=== PATIENT | male | born 1955 | race American Indian/Alaskan Native ===

== ENCOUNTER 2016-11-03 13:07 | Emergency (ER) | payer OTHER ==
[2016-11-03 14:14] LABS: Basophils % (Auto) 0.3 % (0.0-1.8); Hematocrit 43.5 % (35.5-45.6); Hemoglobin 14.8 gm/dl (11.8-15.2); Mean Corpuscular HGB Conc 34 % (32-34); Mean Corpuscular Hemoglobin 32 pg (28-32); Mean Corpuscular Volume 95 fl (84-94); Platelet Count 229 K/mm3 (140-440); Red Blood Count 4.57 M/mm3 (3.65-5.03); Red Cell Distribution Width 13.2 % (13.2-15.2); White Blood Count 8.1 K/mm3 (4.5-11.0)
[2016-11-03 14:18] LABS: Anion Gap 13 mmol/L; BUN/Creatinine Ratio 15.71; Blood Urea Nitrogen 11 mg/dL (9-20); Carbon Dioxide 27 mmol/L (22-30); Chloride 103.9 mmol/L (98-107); Glucose 94 mg/dL (75-100); Potassium 4.1 mmol/L (3.6-5.0); Sodium 140 mmol/L (137-145)
[2016-11-03 14:46] LABS: Bilirubin,Urine NEG (Negative); Blood,Urine NEG (Negative); Ketones,Urine NEG (Negative); Leukocyte Esterase,Urine NEG (Negative); Mucus,Urine FEW /HPF; Nitrite,Urine NEG (Negative); Protein,Urine <15 mg/dL mg/dL (Negative); Urobilinogen,Urine < 2.0 mg/dL (<2.0)
[2016-11-03] MEDS ORDERED: ZOFRAN IV ONE (16:11)
[2016-11-03] MEDS ORDERED: TORADOL IV ONE (16:11)
[2016-11-03] MEDS ORDERED: NACL 0.9% 1000 ML 1,000 ML IV ONE (16:11)
[2016-11-03] MEDS ORDERED: DILAUDID IV ONE (16:11)
--- NOTE | 2016-11-03 16:26 | Emergency Department Report ---
ED Abdominal Pain HPI - General Chief Complaint: Abdominal Pain Stated Complaint: LOWER BACK/GROIN PAIN Time Seen by Provider: 11/03/16 16:06 Source: patient Mode of arrival: Ambulatory Limitations: No Limitations - History of Present Illness MD Complaint: abdominal pain, flank pain -: Sudden Location: LLQ, L flank Radiation: none Severity: moderate Severity scale (0 -10): 3 Quality: dull Consistency: intermittent Improves With: nothing Worsens With: nothing Associated Symptoms: nausea. denies: vomiting, diarrhea, fever, chills, constipation, dysuria, hematemesis, melena, hematuria, anorexia - Related Data Previous Rx's Medication Instructions Recorded Last Taken Type Diclofenac Potassium 50 mg PO BID #20 tablet 11/03/16 Unknown Rx Allergies Allergy/AdvReac Type Severity Reaction Status Date / Time No Known Allergies Allergy Unverified 11/03/16 13:31 ED Review of Systems ROS: Stated complaint: LOWER BACK/GROIN PAIN Other details as noted in HPI Comment: All other systems reviewed and negative ED Past Medical Hx - Past Medical History Previous Medical History?: No - Surgical History Past Surgical History?: No - Social History Smoking Status: Current Every Day Smoker Substance Use Type: Alcohol - Medications Home Medications: Home Medications Medication Instructions Recorded Confirmed Last Taken Type Diclofenac Potassium 50 mg PO BID #20 tablet 11/03/16 Unknown Rx ED Physical Exam - General General appearance: alert, in no apparent distress - Head Head exam: Present: atraumatic, normocephalic - Eye Eye exam: Present: normal appearance, PERRL, EOMI - ENT ENT exam: Present: normal exam, normal orophraynx, mucous membranes moist - Neck Neck exam: Present: normal inspection - Respiratory Respiratory exam: Present: normal lung sounds bilaterally. Absent: respiratory distress, wheezes, rales, rhonchi - Cardiovascular Cardiovascular Exam: Present: regular rate, normal rhythm. Absent: systolic murmur, diastolic murmur, rubs, gallop - GI/Abdominal GI/Abdominal exam: Present: soft, normal bowel sounds. Absent: distended, tenderness, guarding, rebound - Rectal Rectal exam: Present: deferred - Extremities Exam Extremities exam: Present: normal inspection - Back Exam Back exam: Present: normal inspection, CVA tenderness (L) - Neurological Exam Neurological exam: Present: alert, oriented X3 - Psychiatric Psychiatric exam: Present: normal affect, normal mood - Skin Skin exam: Present: warm, dry, intact, normal color. Absent: rash ED Course Vital Signs 11/03/16 11/03/16 13:25 16:35 Temperature 98.9 F Pulse Rate 63 Respiratory 20 18 Rate Blood Pressure 172/90 O2 Sat by Pulse 99 Oximetry ED Medical Decision Making - Lab Data Result diagrams: 11/03/16 13:45 11/03/16 13:45 - Medical Decision Making patient doing well after lfuids and meds, ct abd and pelvis with non obstructing kidney stones, will dc and referral with urology. Critical care attestation.: If time is entered above; I have spent that time in minutes in the direct care of this critically ill patient, excluding procedure time. ED Disposition Clinical Impression: Kidney calculi Disposition: DC-01 TO HOME OR SELFCARE Is pt being admited?: No Does the pt Need Aspirin: No Condition: Good Instructions: Renal Colic (ED) Prescriptions: Diclofenac Potassium 50 mg PO BID #20 tablet Referrals: PRIMARY CARE, [Primary Care Provider] - 3-5 Days Time of Disposition: 17:54
--- NOTE | 2016-11-03 17:06 | Cat Scan Report ---
FINAL REPORT PROCEDURE: CT abdomen and pelvis without contrast. TECHNIQUE: Computerized axial tomography of the abdomen and pelvis was performed without intravenous contrast. This study is performed without intravascular contrast material and its sensitivity for abdominal and pelvic pathology, including neoplasms, inflammation, abscess, free fluid, thrombosis, arterial dissection and infarction, is reduced compared with a contrast enhanced study. HISTORY: Abdominal pain. COMPARISON: No prior studies are available for comparison. FINDINGS: There is a calcified granuloma and a couple small cysts in the right lower lobe. There are no pleural effusions. The heart size is normal. The liver, spleen and pancreas are grossly normal. There are 2 small foci of diminished attenuation within the right lobe of the liver. These probably represent small cysts. The gallbladder is present. The adrenal glands are not enlarged. Both kidneys appear normal in size and configuration. There are 2 large nonobstructing calculi in the lower pole of the right kidney. These are too large to pass spontaneously and referral to a urologist is suggested. The largest calculus measures 8.4 millimeters x 6.7 millimeters in cross-section. There appears to be a double renal collecting system on the right with a single ureter. The abdominal aorta has a normal caliber. There is no retroperitoneal adenopathy. The unopacified gastrointestinal tract is unremarkable. A normal appendix is visible. There is a very tiny focus of fat with a tiny calcification that appear to be within the dome of the bladder wall. This is seen on images 138 and 139 of series 3. This finding is of doubtful clinical significance, but uncertain etiology. The seminal vesicles are unremarkable. The prostate is enlarged. The regional skeleton appears intact. IMPRESSION: Probable 2 small hepatic cysts. Large nonobstructing calculi in the lower pole of the right kidney. Referral to urologist recommended. Enlargement of the prostate.
[2016-11-03 19:39] VITALS: BP 170/83
== END 2016-11-03 18:15 | disposition home or self-care (01) ==
LOC: ED 13:07
DX: N20.0 Calculus of kidney (principal); F17.200 Nicotine dependence, unspecified, uncomplicated
CPT/HCPCS: 36415; 74176; 80048; 81001; 85025; 96361; 96374; 96375; 99284; J1170; J1885; J2405; J7030

== ENCOUNTER 2017-02-05 08:34 | Emergency (ER) | payer OTHER ==
--- NOTE | 2017-02-05 09:55 | XRay Report ---
LEFT SHOULDER, 3 views: History: Left shoulder pain. Normal bone mineralization. No fracture, dislocation or ligamentous injury. No significant degenerative changes. Subtle calcifications overlie the expected course of the distal infraspinatus tendon consistent with chronic calcific tendinitis. The remaining soft tissues are within normal limits. IMPRESSION: Calcific tendinitis of the infraspinatus tendon. See above. No acute process.
--- NOTE | 2017-02-05 10:47 | Emergency Department Report ---
ED General Adult HPI - General Chief complaint: Shoulder Injury Stated complaint: LT SHOULDER PX Time Seen by Provider: 02/05/17 10:11 Source: patient, EMS Mode of arrival: Stretcher Limitations: No Limitations - History of Present Illness Initial comments: Patient is a 61-year-old malein past medical history who presents with left shoulder pain. Patient states left shoulder pain as been going on for last couple days. He states it is an achy type of pain at slow exam is shoulder and he has numbness that radiates down to his left arm. Patient denies having any chest pain patient's symptoms occurred when he was moving his shoulder. Patient states the pain is worse at the top of the shoulder moving his shoulder makes it worse and nothing makes it better. He states as a constant type of achy pain. He states the pains at 10 out 10. Patient denies any nausea or vomiting. - Related Data Previous Rx's Medication Instructions Recorded Last Taken Type Diclofenac Potassium 50 mg PO BID #20 tablet 11/03/16 Unknown Rx Acetaminophen [Non-Aspirin Pain 1,000 mg PO Q6HR PRN #30 tablet 02/05/17 Unknown Rx Relief] Cyclobenzaprine HCl [Flexeril 5 MG 5 mg PO TID PRN #30 tab 02/05/17 Unknown Rx TAB] HYDROcodone/APAP 7.5-325 [[place] 1 each PO Q8HR PRN #15 tablet 02/05/17 Unknown Rx 7.5/325] Naproxen [Naproxen TAB] 250 mg PO BID #20 tablet 02/05/17 Unknown Rx Allergies Allergy/AdvReac Type Severity Reaction Status Date / Time No Known Allergies Allergy Unverified 11/03/16 13:31 ED Review of Systems ROS: Stated complaint: LT SHOULDER PX Other details as noted in HPI Constitutional: denies: chills, fever Eyes: denies: eye pain, eye discharge, vision change ENT: denies: ear pain, throat pain Respiratory: denies: cough, shortness of breath, wheezing Cardiovascular: denies: chest pain, palpitations Endocrine: no symptoms reported Gastrointestinal: denies: abdominal pain, nausea, diarrhea Genitourinary: denies: urgency, dysuria Musculoskeletal: as per HPI, other (shoulder pain). denies: back pain, joint swelling, arthralgia Skin: denies: rash, lesions Neurological: denies: headache, weakness, paresthesias Psychiatric: denies: anxiety, depression Hematological/Lymphatic: denies: easy bleeding, easy bruising ED Past Medical Hx - Past Medical History Previous Medical History?: No - Surgical History Past Surgical History?: No - Social History Smoking Status: Current Every Day Smoker Substance Use Type: Alcohol - Medications Home Medications: Home Medications Medication Instructions Recorded Confirmed Last Taken Type Diclofenac Potassium 50 mg PO BID #20 tablet 11/03/16 Unknown Rx Acetaminophen [Non-Aspirin Pain 1,000 mg PO Q6HR PRN #30 tablet 02/05/17 Unknown Rx Relief] Cyclobenzaprine HCl [Flexeril 5 MG 5 mg PO TID PRN #30 tab 02/05/17 Unknown Rx TAB] HYDROcodone/APAP 7.5-325 [[place] 1 each PO Q8HR PRN #15 tablet 02/05/17 Unknown Rx 7.5/325] Naproxen [Naproxen TAB] 250 mg PO BID #20 tablet 02/05/17 Unknown Rx ED Physical Exam - General Limitations: No Limitations General appearance: alert, in no apparent distress - Head Head exam: Present: atraumatic, normocephalic - Eye Eye exam: Present: normal appearance - ENT ENT exam: Present: mucous membranes moist - Neck Neck exam: Present: normal inspection - Respiratory Respiratory exam: Present: normal lung sounds bilaterally. Absent: respiratory distress - Cardiovascular Cardiovascular Exam: Present: regular rate, normal rhythm. Absent: systolic murmur, diastolic murmur, rubs, gallop - GI/Abdominal GI/Abdominal exam: Present: soft, normal bowel sounds - Rectal Rectal exam: Present: deferred - Extremities Exam Extremities exam: Present: tenderness (left shoulder tenderness), normal capillary refill, other (2+ radial pulse patient is neurovascularly intact) - Back Exam Back exam: Present: normal inspection - Neurological Exam Neurological exam: Present: alert, oriented X3 - Psychiatric Psychiatric exam: Present: normal affect, normal mood - Skin Skin exam: Present: warm, dry, intact, normal color. Absent: rash ED Course Vital Signs 02/05/17 02/05/17 02/05/17 09:13 09:30 11:25 Temperature 98.3 F Pulse Rate 75 Respiratory 16 18 18 Rate Blood Pressure 178/98 Blood Pressure [Left] O2 Sat by Pulse 100 100 Oximetry 02/05/17 02/05/17 02/05/17 11:27 11:30 12:49 Temperature Pulse Rate Respiratory 18 18 18 Rate Blood Pressure Blood Pressure [Left] O2 Sat by Pulse Oximetry 02/05/17 02/05/17 02/05/17 12:53 12:55 15:51 Temperature 98.3 F Pulse Rate 47 L 64 Respiratory 18 18 18 Rate Blood Pressure Blood Pressure 122/73 142/58 [Left] O2 Sat by Pulse 99 99 Oximetry - Joint Aspiration/Injection Consent Obtained: verbal consent Time Out Performed: Yes Indications: to relieve pressure/pain Side of Body: left Joint Aspirated: shoulder Ultrasound Guidance: Yes Local Anesthesia Used: with Epi Amount of Anesthesia Used (mls): 10 Needle Size Used: 20G Syringe Size Used: 5cc Medication Injected, if any: Lidocaine Amount of Medication Injected (mls): 10 Patient Tolerated Procedure: well Complications: none ED Medical Decision Making - EKG Data -: EKG Interpreted by Nm - EKG Data 02/05/17 14:07 EKG shows sinus rhythm normal axis possible LVH no ST segment elevation or T- wave inversion. - Radiology Data Radiology results: report reviewed, image reviewed Left shoulder x-ray: Shows calcified tendon no acute process - Medical Decision Making Chief medical diagnosis: Shoulder dislocation Differential medical diagnosis calcific tendinitis, supraspinatus tear I will K EKG, x-ray and IV pain medication oral pain medication Patient is not feeling better after IV pain medication and oral pain medication I will send patient home with [place]. Patient is feeling better after left shoulder block. I will send the patient home with follow-up for PCP patient agrees to plan additional verbal discharge instructions were given. He received a work note and can return to work on Friday Critical care attestation.: If time is entered above; I have spent that time in minutes in the direct care of this critically ill patient, excluding procedure time. ED Disposition Clinical Impression: Calcific tendinitis of left shoulder Left shoulder pain Qualifiers: Chronicity: acute Qualified Code(s): M25.512 - Pain in left shoulder Disposition: -01 TO HOME OR SELFCARE Is pt being admited?: No Does the pt Need Aspirin: No Condition: Stable Instructions: Rotator Cuff Tendinitis (ED), Calcific Tendinitis (ED) Prescriptions: Acetaminophen [Non-Aspirin Pain Relief] 1,000 mg PO Q6HR PRN #30 tablet PRN Reason: Pain Cyclobenzaprine HCl [Flexeril 5 MG TAB] 5 mg PO TID PRN #30 tab PRN Reason: Muscle Spasm HYDROcodone/APAP 7.5-325 [[place] 7.5/325] 1 each PO Q8HR PRN #15 tablet PRN Reason: Pain Naproxen [Naproxen TAB] 250 mg PO BID #20 tablet Referrals: PRIMARY CARE, [Primary Care Provider] - 3-5 Days Forms: Work/School Release Form(ED)
[2017-02-05] MEDS ORDERED: MORPHINE IV ONE (10:51)
[2017-02-05] MEDS ORDERED: NORCO 10/325 PO ONE (10:52)
[2017-02-05] MEDS ORDERED: TORADOL IV ONE (10:52)
[2017-02-05] MEDS ORDERED: VALIUM PO ONE (11:30)
[2017-02-05] MEDS ORDERED: PERCOCET 5/325 PO ONE (12:45)
[2017-02-05] MEDS ORDERED: DILAUDID IV ONE (12:45)
[2017-02-05] MEDS ORDERED: XYLOCAINE 1%/ EPI 1:100,000 INFILTRATI ONE (14:37)
[2017-02-05 15:52] VITALS: BP 142/58
== END 2017-02-05 15:51 | disposition home or self-care (01) ==
LOC: ED 08:34
DX: M75.32 Calcific tendinitis of left shoulder (principal); F17.200 Nicotine dependence, unspecified, uncomplicated
CPT/HCPCS: 20611; 73030; 93005; 93010; 96374; 96375; 99284; J1170; J1885; J2270